=== PATIENT | male | born 1995 | race Two or more races ===

== ENCOUNTER 2019-08-22 13:09 | Emergency (ER) | payer SELFPAY ==
[2019-08-22 13:18] VITALS: BP 136/85
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
--- NOTE | 2019-08-22 14:19 | RADIOLOGY REPORT (SQ) ---
EXAM DESCRIPTION: TIBIA FIBULA RIGHT IMAGES COMPLETED DATE/TIME: 08/22/2019 2:05 pm REASON FOR STUDY: pain COMPARISON: None. NUMBER OF VIEWS: Two views. TECHNIQUE: Two radiographic images acquired of the right tibia and fibula to include the knee and an kle in at least one projection. LIMITATIONS: None. FINDINGS: MINERALIZATION: Normal. BONES: No acute fracture or dislocation. No worrisome bone lesions. SOFT TISSUES: Soft tissue swelling overlying the distal lower leg. OTHER: Small right joint effusion. IMPRESSION: Small joint effusion. Soft tissue swelling surrounding the distal calf. TECHNICAL DOCUMENTATION: JOB ID: [id number] 2010 [employer]- All Rights Reserved Reading location - IP/workstation name: [email or web address]
== END 2019-08-22 14:40 | disposition home or self-care (01) ==
LOC: ER 13:09
DX: G89.29 Other chronic pain (principal); M25.561 Pain in right knee; M79.604 Pain in right leg
CPT/HCPCS: 99283